=== PATIENT | female | born 1975 | race Asian ===

== ENCOUNTER → 2023-12-22 11:49 | Outpatient (REF) | payer BC, SELFPAY | LOC: WDC 11:49 | PROVIDERS: ATTENDING PHYSICIAN Physician Assistant | DX: Z12.31 Encounter for screening mammogram for malignant neoplasm of breast (principal) | CPT/HCPCS: 77063; 77067 ==

== ENCOUNTER → 2024-12-23 09:57 | Outpatient (REF) | payer BC, SELFPAY | LOC: HWWDC 09:57 | PROVIDERS: ATTENDING PHYSICIAN Physician Assistant | DX: Z12.31 Encounter for screening mammogram for malignant neoplasm of breast (principal) | CPT/HCPCS: 77063; 77067 ==